=== PATIENT | male | born 1960 | race Caucasian/White ===

== ENCOUNTER 2019-08-01 16:48 | Inpatient (IN) ==
[2019-08-01 23:04] LABS: Basophils % 0.2 %; Eosinophils # 0.1 K/mcL (0.0-0.6); Eosinophils % 0.4 %; Hemoglobin 15.6 g/dL (12.9-16.9); Immature Granulocytes % 0.3 % (0-4); Lymphocytes # 0.7 K/mcL (0.6-4.6); Lymphocytes % 5.2 %; Mean Corpuscular HGB Conc 33.2 g/dL (31.6-35.5); Mean Corpuscular Hemoglobin 29.7 pg (28.0-33.3); Mean Corpuscular Volume 89.4 fL (83.0-100.0); Mean Platelet Volume 10.7 fL (9.4-12.4); Monocytes # 1.3 K/mcL (0.0-1.3); Monocytes % 9.9 %; Neutrophils # 10.6 K/mcL (1.6-8.9); Platelet Count 188 K/mcL (140-400); Red Blood Count 5.26 M/mcL (4.19-5.50); White Blood Count 12.6 K/mcL (4.3-11.1)
[2019-08-01 23:12] LABS: Prothrombin Time 11.6 Seconds (9.4-12.1)
[2019-08-01 23:14] LABS: Estimated Average Glucose 120 mg/dl
[2019-08-01 23:15] LABS: Activated Partial Thrombo Time 31.8 Seconds (26.0-36.0)
[2019-08-01 23:25] LABS: Albumin 4.3 g/dL (3.5-5.7); Albumin/Globulin Ratio 2.2 (1.1-2.2); Bilirubin,Direct 0.2 mg/dL (0.0-0.2); Bilirubin,Indirect 0.4 mg/dL (0.0-1.2); Bilirubin,Total 0.6 mg/dL (0.3-1.0); Total Protein 6.3 g/dL (6.4-8.9)
[2019-08-01 23:26] LABS: Alanine Aminotransferase 16 Units/L (7-52); Albumin 4.3 g/dL (3.5-5.7); Albumin/Globulin Ratio 2.2 (1.1-2.2); Alkaline Phosphatase 95 Units/L (34-104); Aspartate Amino Transferase 21 Units/L (13-39); BUN/Creatinine Ratio 18 (6-26); Bilirubin,Total 0.7 mg/dL (0.3-1.0); Blood Urea Nitrogen 24 mg/dL (6-20); Calcium 9.1 mg/dL (8.6-10.3); Carbon Dioxide 26 mEq/L (23-29); Chloride 105 mEq/L (98-107); Glucose 132 mg/dL (70-105); Osmolality,Calculated 296 (280-300); Potassium 4.7 mEq/L (3.5-5.1); Sodium 140 mEq/L (136-145); Total Protein 6.3 g/dL (6.4-8.9); eGFR For African Americans > 60 (> 60); eGFR For Non-African Americans 56 (> 60)
--- NOTE | 2019-08-01 23:45 | Orthopedic Consult Note ---
Date of Encounter: 08/01/19 Time of Encounter: 23:40 History of Present Illness Chief complaint: Left leg pain HPI: Mr. Ratliff is a 59 year old male who sustained an injury to his left leg when he was sawing a stump from a tree the images pushed over with a bulldozer. Ap parently the blade pinched and the log rolled and not his left leg. He had immediate pain and deformity to the left lower extremity. He was ultimately brought to the emergency room at [facility] where x-rays taken revealed evidence of a tibia and fibular fracture. He was transferred to [facility] for definitive orthopedic management. I reviewed the patient's completed medical chart as well as records from [place]. Pertinent orthopedic examination reveals a pleasant 59-year-old gentleman in mild distress secondary to left leg pain. Left lower extremity is in a Hare splint from the knee distal. Distal neurosensory exam is intact in the foot. Strong pulses are present. X-rays of the left tibia and fibula are reviewed. These reveal a segmental type fracture of the midshaft of the tibia with an associated comminuted fracture of the midshaft of the fibula. Impression: Left tibia and fibular fractures, segmental tibia and midshaft fibula Recommendation: Discussed with the patient and with his recommend we proceed with surgical fixation. Would recommend stabilization of the fibular fracture to obtain appropriate length and then this would be followed by intramedullary nailing of the tibia with possible open reduction. Discussed the surgical procedure as well as the potential risks and complications including but not limited to bleeding, infection, blood clots, nerve injury, stiffness, malunion and nonunion as well as leg length or rotational deformities. Patient understands and agrees to proceed with surgery as outlined. Signed informed consent for the surgery. Anticipate proceeding with surgery tomorrow when op erating time is available. Thank you for allowing me to see and care for Mr. Ratliff. Sincerely, Jose Abbott,DO Past Med Surg Social Fam HX - Past Medical History Medical history: hypertension Psychiatric history: depression - Past Surgical History Additional surgical history: OPEN HEART SURGERY AT AGE 40 - Social History Smoking Status: Current every day smoker Packs per day: 1 Smokeless Tobacco Status: No Alcohol use: occasionally Drug use: none Medications and Allergies Aspirin [Lo-Dose Aspirin EC] 81 mg PO DAILY 08/01/19 [History] Atenolol [Tenormin] 25 mg PO DAILY 08/01/19 [History] Fish Oil 1,500 mg PO DAILY 08/01/19 [History] Sertraline [Zoloft] 50 mg PO DAILY 08/01/19 [History] Simvastatin [Zocor] 40 mg PO DAILY 08/01/19 [History] Allergy/AdvReac Type Severity Reaction Status Date / Time No Known Allergies Allergy Verified 08/01/19 16:01 All Systems Reviewed: The remainder of the systems were reviewed and are negative Physical Exam - Constitutional Vitals: Temp Pulse Resp BP Pulse Ox 99.5 F 53 18 110/66 94 08/01/19 21:49 08/01/19 21:49 08/01/19 21:49 08/01/19 21:49 08/01/19 21:49 Results - Labs Result Diagrams: 08/01/19 22:48 08/01/19 22:48 Labs: Abnormal lab results WBC 12.6 K/mcL (4.3-11.1) H 08/01/19 22:48 Neutrophils # 10.6 K/mcL (1.6-8.9) H 08/01/19 22:48 BUN 24 mg/dL (6-20) H 08/01/19 22:48 Creatinine 1.32 mg/dL (0.70-1.30) H 08/01/19 22:48 Est GFR (Non-Af Amer) 56 (> 60) L 08/01/19 22:48 Glucose 132 mg/dL (70-105) H 08/01/19 22:48 Hemoglobin A1c 5.8 % (-5.6) H 08/01/19 22:48 Serum Total Protein 6.3 g/dL (6.4-8.9) L 08/01/19 22:48 Serum Total Protein 6.3 g/dL (6.4-8.9) L 08/01/19 22:48 Globulin 2.0 g/dL (2.4-3.5) L 08/01/19 22:48 Globulin 2.0 g/dL (2.4-3.5) L 08/01/19 22:48 HDL Cholesterol 38 mg/dL (40-59) L 08/01/19 22:48 H & H 08/01/19 Range/Units 22:48 Hgb 15.6 (12.9-16.9) g/dL Hct 47.0 (37.5-50.1) % All other labs normal.
[2019-08-01] MEDS ORDERED: *HR* Promethazine 25 MG/ML VIAL IVP PRN (23:56)
[2019-08-01] MEDS ORDERED: Acetaminophen 325 MG TABLET PO PRN (23:56)
[2019-08-01] MEDS ORDERED: *HR* OxyCODONE Immed Rel 5 MG TABLET PO PRN (23:56)
[2019-08-01] MEDS ORDERED: Naloxone 0.4 MG/ML INJ IVP PRN (23:56)
[2019-08-02] MEDS: Nicotine 21 MG PATCH.TD24 TD SCH (00:31)
[2019-08-02] MEDS: 0.9 % Sodium Chloride 1,000 ML IVC SCH ×2 (00:31→15:11)
[2019-08-02] MEDS: *HR* HYDROcodone/Acet 5/325 mg TABLET PO PRN ×3 (00:32→15:10)
--- NOTE | 2019-08-02 00:46 | Internal Med History&Physical ---
Date of Encounter: 08/01/19 Time of Encounter: 23:00 Internal Medicine - H&P: HPI Chief complaint: Left leg pain Admitted From: Intrahospital Transfer Plans for Post Hospital Care: Home History of present illness: Mr. Ratliff is a 59 year old male w/PMH of 6-way cardiac bypass surgery at the age of 40, HTN, HLD, and depression presents from [facility] ED w/CC of left leg pain resulting from an accident sustained today. Patient was cutting a tree down when the tree rolled and hit him in the left leg. Patient reports leg was pointed one direction and his left foot was pointing in another direction. EMS splinted leg. 2V XR of the left leg shows comminuted tibial and fibular mid diaphyseal fractures with punctate foreign body noted near the tibia just superior to the fracture site. Patient reports 3/10 pain in left leg. Patient denies recent illness, fever, chills, nausea, vomiting, headache, changes in vision, unusual bleeding, chest pain, shortness of breath, home oxygen use, abdominal pain, diarrhea, constipation, numbness, tingling, dizziness, lightheadedness, pre-syncope, or syncope. Past Med Surg Social Fam HX - Past Medical History Source: patient, old records reviewed, obtained from family Medical history: hyperlipidemia, hypertension Psychiatric history: depression - Past Surgical History Additional surgical history: OPEN HEART SURGERY AT AGE 40 - [address] WAY BYPASS - Social History Smoking Status: Current every day smoker Packs per day: 1 PPD Smokeless Tobacco Status: No Alcohol use: occasionally Drug use: none Occupational status: employed Current living situation: Home, With Family Activity Level: Independent ambulation, Very active Recent Out of Country Travel Within the Last 8 Weeks: No Exposure or Possible Exposure to Illness During Travel: No - Family History Father Race: Family Member Ethnicity: Non- Living Status: Age at : 51 Cause of : Cancer Hx Family Cancer: Yes (Metastatic cancer) Mother Race: Family Member Ethnicity: Non- Living Status: Age at : 73 Cause of : NE Hx Family Cardiac Disorders: Yes (NE, CAD) Brother Race: Family Member Ethnicity: Non- Living Status: Age at : 55 Cause of : Cancer (Type unknown) Hx Family Cancer: Yes Sister Race: Family Member Ethnicity: Non- Living Status: Still Living Hx Family Medical Disorders: No Internal Medicine - H&P: Meds Aspirin [Lo-Dose Aspirin EC] 81 mg PO DAILY 08/01/19 [History] Atenolol [Tenormin] 25 mg PO DAILY 08/01/19 [History] Fish Oil 1,500 mg PO DAILY 08/01/19 [History] Sertraline [Zoloft] 50 mg PO DAILY 08/01/19 [History] Simvastatin [Zocor] 40 mg PO DAILY 08/01/19 [History] Allergy/AdvReac Type Severity Reaction Status Date / Time No Known Allergies Allergy Verified 08/01/19 16:01 All Systems PM: A 10-system review of systems was performed and is negative for pertinent fi ndings except as documented above in the HPI. - Constitutional Constitutional: as per HPI, no chills, no fever(s), no night sweats - EENT Eyes: as per HPI, no change in vision, no discharge, no pain, no photophobia Ears: as per HPI, no ear discharge, no ear pain, no tinnitus Nose, mouth and throat: as per HPI, no dysphagia, no nasal discharge, no neck pain, no sore throat - Breasts Breasts: as per HPI - Cardiovascular Cardiovascular ROS IM: as per HPI, no chest pain, no diaphoresis, no dyspnea, no lightheadedness, no palpitations, no syncope - Respiratory Respiratory: as per HPI, no cough, no dyspnea, no wheezing, no excessive phlegm production - Gastrointestinal Gastrointestinal: as per HPI, no abdominal pain, no diarrhea, no hematemesis, no hematochezia, no melena, no nausea, no vomiting - Genitourinary Genitourinary ROS male: as per HPI - Musculoskeletal Musculoskeletal ROS IM: as per HPI, other (Left leg pain), no numbness, no tingling - Integumentary Integumentary IM: as per HPI, no rash, no unusual bruising - Neurological Neurological ROS: as per HPI, no confusion, no convulsions, no focal weakness, no numbness, no tingling, no tremor(s) - Psychiatric Psychiatric: as per HPI - Endocrine Endocrine IM: as per HPI - Hematologic/Lymphatic Hematologic/Lymphatic: as per HPI, no easy bruising - Allergic/Immunologic Allergic/Immunologic: as per HPI - Constitutional Vitals: Temp Pulse Resp BP Pulse Ox 99.5 F 53 18 110/66 94 08/01/19 21:49 08/01/19 21:49 08/01/19 21:49 08/01/19 21:49 08/01/19 21:49 General appearance: Present: cooperative, mild distress, A&O X 3, pleasant, answers questions appropriately Exam: Patient examined at bedside. Patient reporting 3/10 pain in LLE. Patient denies any other sx or complaints on examination. VS: 99.5F temp, HR 53, RR 18, BP 110/66, SPO2 94% on room air. - Head Head exam: Present: atraumatic, normocephalic - Eye Eye exam: Present: PERRL, conjuntiva pink, sclera anicteric Pupils: Present: PERRL - ENT ENT exam: Present: normal exam - Neck Neck exam general surgery: Present: normal inspection, supple, trachea midline. Absent: lymphadenopathy - Respiratory Respiratory exam: Present: CTAB. Absent: accessory muscle use, rales, rhonchi, wheezes - Cardiovascular Cardiovascular exam: Present: RRR, +S1, +S2. Absent: diastolic murmur, gallop, rubs, systolic murmur - GI/Abdominal GI/Abdominal exam: Present: normal bowel sounds, soft, no peritoneal signs. Absent: distended, tenderness - Rectal Rectal exam: Present: deferred - Additional comments: exam deferred. - Extremities Exam Extremities exam: Present: pedal edema (LLE), tenderness (LLE), warm, radial pulses palpable and symmetrical. Absent: calf tenderness, cyanotic - Back Exam Back exam: Present: normal inspection - Neurological Exam Neurological exam: Present: alert, CN II-XII intact, oriented X3, no focal deficits. Absent: pronater drift, facial droop, speech deficit - Psychiatric Psychiatric exam: Present: normal affect, normal mood - Skin Skin exam: Present: dry, intact Internal Med - H&P Results - Labs CBC & Chem 7: 08/02/19 02:19 08/02/19 02:19 Labs: Short CBC 08/01/19 Range/Units 22:48 WBC 12.6 H (4.3-11.1) K/mcL Hgb 15.6 (12.9-16.9) g/dL Hct 47.0 (37.5-50.1) % Plt Count 188 (140-400) K/mcL Neutrophils # 10.6 H (1.6-8.9) K/mcL BMP 08/01/19 22:48 Sodium 140 Potassium 4.7 Chloride 105 Carbon Dioxide 26 BUN 24 H Creatinine 1.32 H Glucose 132 H Calcium 9.1 Liver Function 08/01/19 08/01/19 Range/Units 22:48 22:48 Total Bilirubin 0.7 0.6 (0.3-1.0) mg/dL Direct Bilirubin 0.2 (0.0-0.2) mg/dL AST 21 21 (13-39) Units/L ALT 16 17 (7-52) Units/L Alkaline Phosphatase 95 95 (34-104) Units/L Albumin 4.3 4.3 (3.5-5.7) g/dL - Impressions ITS Impressions Chest X-Ray 08/01/19 22:19 IMPRESSION: No acute process. D/ / Jeffy Ortiz / Jeffy Ortiz Interpreting Provider: Jeffy Ortiz - Diagnostic Studies Other Images Additional comments: Impressions EXAMINATION: TWO XRAY VIEWS OF THE LEFT TIBIA/FIBULA 08/01/2019 4:15 pm COMPARISON: None. HISTORY: ORDERING SYSTEM PROVIDED HISTORY: leg injury Acute. Initial exam. FINDINGS: There are fractures noted through the mid tibial and fibular diaphyses with apex medial angulation. There is a retained radiopaque foreign body near the tibia. No other fractures are identified. XR/XR tibia fibula LT IMPRESSION: 1. Comminuted tibial and fibular mid diaphyseal fractures. 2. Punctate foreign body noted near the tibia, just superior to the fracture site. D/ / 08/01/2019 16:23:24 [facility]hsan Sierra [facility] Provider: Ahsan Sierra MD Chest x-ray Additional comments: Impressions Chest X-Ray 08/01/19 22:19 IMPRESSION: No acute process. D/ / Jeffy Ortiz / Jeffy Ortiz Interpreting Provider: Jeffy Ortiz - Assessment and Plan (1) Tibia/fibula fracture, shaft Current Visit: Yes Status: Acute Assessment and plan: Acute segmental and comminuted tibial and fibular mid diaphyseal fractures resulting from an accident sustained today. Patient was cutting a tree down when the tree rolled and hit him in the left leg. Patient reports leg was pointed one direction and his left foot was pointing in another direction. EMS splinted leg. 2V XR of the left leg shows comminuted tibial and fibular mid diaphyseal fractures with punctate foreign body noted near the tibia just superior to the fracture site. Patient reports 3/10 pain in left leg. Patient denies recent cardiac w/u. Hx of 6-way bypass at the age of 40. EKG shows sinus bradycardia with ST deviation and moderate T-wave abnormality. Consider lateral ischemia. 1 view portable CXR shows no acute process. Echocardiogram stat in the a.m. for surgery clearance. NPO at midnight for surgery w/Dr. Abbott tomorrow. Stair-step pain medications for pain mgmt. Patient is high risk for further morbidity based on current segmental and comminuted tibial and fibular mid diaphyseal fractures, hx of 6-way bypass at the age of 40, familial hx of CAD and NE (mother), current tobacco abuse; and risk factors of HTN and HLD. Inpatient. Qualifiers: Encounter type: initial encounter Fracture type: closed Laterality: left Qualified Code(s): S82.202A - Unspecified fracture of shaft of left tibia, initial encounter for closed fracture; S82.402A - Unspecified fracture of shaft of left fibula, initial encounter for closed fracture (2) Leukocytosis Current Visit: Yes Status: Acute Assessment and plan: Acue leukocytosis w/WBC of 12.6 on admission. Likely reactive to segmental tibial and fibular mid distal physeal fractures. No identifiable infection source. Sessile and IVPB ordered by Dr. Abbott for pre-surgery prophylaxis. Monitor pt. and f/u labs. Will order blood cultures and U/A if warranted. Qualifiers: Leukocytosis type: other Qualified Code(s): D72.828 - Other elevated white blood cell count (3) TODD (acute kidney injury) Current Visit: Yes Status: Acute Assessment and plan: TODD w/GFR of 56 and creatinine 1.32. Patient denies any history of CKD. 0.9 IV fluids ordered at 75 mls/hr. Will monitor pt. and f/u labs. Strict I&O. Will avoid nephrotoxins. (4) HTN (hypertension) Current Visit: Yes Status: Chronic Assessment and plan: Hx of chronic HTN. Monitor pt. and VS. Continue patient's atenolol. Qualifiers: Hypertension type: essential hypertension Qualified Code(s): I10 - Essential (primary) hypertension (5) HLD (hyperlipidemia) Current Visit: Yes Status: Chronic Assessment and plan: Hx of chronic HLD. Lipid panel shows triglycerides 81, cholesterol 153, LDL cholesterol 99, VLDL cholesterol 16, HDL cholesterol 38, cholesterol/HDL ratio 4.0. Continue patient's simvastatin. Qualifiers: Hyperlipidemia type: pure hypercholesterolemia Qualified Code(s): E78.00 - Pure hypercholesterolemia, unspecified; E78.0 - Pure hypercholesterolemia (6) Depression Current Visit: Yes Status: Chronic Assessment and plan: Hx of chronic depression. Continue pts. Zoloft. Qualifiers: Depression Type: other depression Qualified Code(s): F32.89 - Other specified depressive episodes (7) Tobacco abuse Current Visit: Yes Status: Chronic Assessment and plan: Hx of chronic tobacco abuse. Pt. reports smoking 1 PPD. 21 mg nicotine patch ordered. (8) DVT prophylaxis Current Visit: Yes Status: Acute Assessment and plan: Anti-embolic stockings and foot pumps for DVT prophylaxis. - Time Spent With Patient Total time spent is greater than 50% in coordination of care (as documented) at patient's floor/unit and/or counseling patient: Greater than 35 minutes
[2019-08-02] MEDS: *HR* HYDROmorphone (PF) 1 MG/ML SYRINGE IVP PRN ×4 (01:24→21:20)
[2019-08-02] MEDS ORDERED: tiZANidine 4 MG TABLET PO ONE (01:25)
[2019-08-02 02:40] LABS: Hematocrit 44.5 % (37.5-50.1); Hemoglobin 14.8 g/dL (12.9-16.9); Mean Corpuscular HGB Conc 33.3 g/dL (31.6-35.5); Mean Corpuscular Volume 90.1 fL (83.0-100.0); Mean Platelet Volume 10.8 fL (9.4-12.4); Platelet Count 168 K/mcL (140-400); Red Blood Count 4.94 M/mcL (4.19-5.50); White Blood Count 9.7 K/mcL (4.3-11.1)
[2019-08-02 02:45] LABS: INR 1.1; Prothrombin Time 12.4 Seconds (9.4-12.1)
[2019-08-02 02:57] LABS: BUN/Creatinine Ratio 20 (6-26); Blood Urea Nitrogen 23 mg/dL (6-20); Calcium 8.8 mg/dL (8.6-10.3); Carbon Dioxide 25 mEq/L (23-29); Chloride 105 mEq/L (98-107); Glucose 127 mg/dL (70-105); Magnesium 1.9 mg/dL (1.6-2.6); Osmolality,Calculated 291 (280-300); Potassium 4.1 mEq/L (3.5-5.1); Sodium 138 mEq/L (136-145); eGFR For African Americans > 60 (> 60); eGFR For Non-African Americans > 60 (> 60)
[2019-08-02] MEDS ORDERED: Aspirin Enteric Coated 81 MG Tablet PO SCH (09:00)
--- NOTE | 2019-08-02 10:01 | Event Note ---
<Bruce Nunez - Last Filed: 08/02/19 17:11> Date of Encounter: 08/02/19 Time of Encounter: 07:58 Subjective: AOx3 laying in bed in no acute distress. Patient reports significant Left lower extremity pain. Reports not having a bowel movement since injury but is still able to pass flatus. Denies any fever, chills, chest pain, SOB, cough, diarrhea, dysuria, history of blood clots or blood in the urine. Patient has a PmHx of 6- way cardiac bypass surgery at the age of 40, HTN, HLD, and depression. PE: -Gen: AOX3 in mild distress secondary to pain -Eyes: LEELA, EOMI, with no conjunctivitis -Throat: Moist mucous membranes with no ulceration or pharyngeal erythema -CV: RRR with no murmur -Resp: CTA in all lung kaur with no rhales or rhonchi -GI: Soft, non-tender with no organomegally or masses palpated -Neuro:CN II-XII intact with no focal deficits. UE strength 4/5. Right lower extremity strength 4/5. Unable to asses R LE due to unstable fracture. -Ext:L leg in splint. Pulses 2/4 in LE ankit. Sensation intact in Ankit LE. No edema present ankit. -Derm: No rashes visualized on extremity. L LE has no cyanosis, or pallor. Assessment/Plan: Tibia/fibula fracture: -Acute segmental and comminuted tibial and fibular mid diaphyseal fractures resulting from an accident sustained 08/01. Splinted by EMS. X ray of the left leg shows comminuted tibial and fibular mid diaphyseal fractures with punctuate foreign body noted near the tibia just superior to the fracture site. -Hgb 14.8 today -Cardiac risk index score 12/05 with 6% 30 day risk , [place], or cardiac arrest plan: -NPO for surgery with Dr. Abbott - Manage pain with 10 mg oxycodone PO Q6, Percocet 1 tab Q6, Diluadid 1mg IVP - Cont neurovascular checks Abnormal EKG - EKG shows sinus bradycardia with ST deviation and moderate T-wave abnormality. -Patient had 6-way cardiac bypass surgery at the age of 40. - ALso has PmhX Hypertension, Hypercholesteremia, History of Smoking 1 PPD, Family History of CAD -Patient asymptomatic denying chest pain, light headedness, SOB, LE edema. -HR has been 53-66 throughout hospital stay on atenolol -Eho report 08/01 showed LVEF 55-60%, no wall motion abnormalities with right ventricle appearing grossly normal, LA normal size, RA normal size, trace mitral regurgitation. No evidence of Pulm HTN -Cardiac risk index score 12/05 with 6% 30 day risk , [place], or cardiac arrest plan: -Cont to monitor vitals Leukocytosis -Patient presented with WBC count of 12.6 on 08/01 which is down to 9.7 today - Likely reactive / fracture, however unable to rule out infectious etiologies -Chest x ray from 08/01 shows no acute process plan: - cont to monitor - Continue cefazoline TODD -GFR of 56 and creatinine 1.32 08/01. -Today eGFR >60 and creatinine 1.14 -0.9 IV fluids ordered at 75 mls/hr plan: -Will continue to monitor kidney function and urine output -Will avoid nephrotoxins and renally dose medications HTN - Hx of chronic HTN. plan: -Monitor pt. vital signs -Continue patient's atenolol 25 mg PO HLD - Lipid panel 08/01 triglycerides 81, cholesterol 153, LDL cholesterol 99, VLDL cholesterol 16, HDL cholesterol 38 plan: -cont simvastatin <Nikita Almeida - Last Filed: 08/02/19 22:02> Date of Encounter: 08/02/19 I saw evaluated and examined this patient and reviewed objective data including labs and my medical decision-making was reviewed with the Resident Physician and medical student. I agree with the documented findings, disposition and treatment plan as described except to any changes set forth below. We independently had [id number] contact with the patient. 59 year old male presented after injury with part of tree causing injury to leg. Imaging shows tib/fib fracture. Currently in no acute distress when leg is not being moved. Sensation of both extremities intact and tibial pulses equal bilaterally with no extremity edema. VS: reviewed. Labs: reviewed, creatinine slightly elevated on admission and now within normal limits. Complains of urinary retention and bladder scan has 600 ml seen in bladder. Continue pain management for surgery planned for today. Monitor renal function, urine output.
--- NOTE | 2019-08-02 21:27 | Anesthesia Evaluation PreOp ---
Date of Encounter: 08/02/19 Time of Encounter: 23:26 - Past History Planned Operation: Left Tibia IM Nailing, ORIF Left Fibula Cardiac History: HTN, Hyperlipidemia, Cardiac Surgery (CABG x 4) Pulmonary History: Smoker, Snore PLANT PROTECTION GUARD History: Denies Any Significant HX Other Medical History: Denies Any Significant HX Anesthesia History: No Prior Anesthetic Complications, Past Anesthesia Alcohol Use: occasionally Drug use: none Medications and Allergies Aspirin [Lo-Dose Aspirin EC] 81 mg PO DAILY 08/01/19 [History] Atenolol [Tenormin] 25 mg PO DAILY 08/01/19 [History] Haughton-3 Fatty Acids [Fish Oil] 300 mg PO DAILY 08/01/19 [History] Sertraline [Zoloft] 50 mg PO DAILY 08/01/19 [History] Simvastatin [Zocor] 40 mg PO DAILY 08/01/19 [History] Nitroglycerin [Nitrostat] 0.4 mg PO Q5MIN PRN MDD 3 doses 08/02/19 [History] Allergy/AdvReac Type Severity Reaction Status Date / Time No Known Allergies Allergy Verified 08/02/19 14:22 - Meds/Allergy Pre-op Review Medications Reviewed: Yes Allergies Reviewed: Yes Beta Blockers on Current Med List: Yes If Beta Blockers taken, Date/Time (Last Dose taken): 08/02/2019 at 0835 Anesthesia Results - Labs 08/02/19 02:19 08/02/19 02:19 - Imaging EKG: report reviewed (sinus bradycardia, ST deviation and moderate T wave abnormality, consider lateral ischemia) Additional studies: 08/02/2019 Echo Impressions: LVEF 55-60%. Normal LV chamber size, wall thickness and function. Normal left ventricular diastolic function. The right ventricle was not well visualized but appeared grossly normal in size and function Mild tricuspid regurgitation. No evidence of pulmonary hypertension. Anesthesia Exam Vital Signs/O2 Sat, Most Current Temp Pulse Resp BP Pulse Ox 98.9 F 65 16 153/82 94 08/02/19 19:07 08/02/19 19:07 08/02/19 19:07 08/02/19 19:07 08/02/19 19:07 Height: 5'9''/1.75m Weight: 190 lbs/86 kg NPO (# of Hours): 8 Pain Scale: 6 Pain Scale Used: Numeric (1 - 10) - HEENT Pupil (Motor): EOMI Mallampati: II Teeth: Edentulous Oral Opening: Greater than 3 - PLANT PROTECTION GUARD LOC: Oriented PLANT PROTE[employer] GUARD Motor: Normal RUE, Normal LUE, Normal RLE, Normal LLE, Normal Face PLANT PROTECTION GUARD Sensory: Normal: RUE, LUE, RLE, LLE, Face - Cardiac Rhythm: Regular Murmur: None - Pulmonary Breath Sounds: bilateral Clear Respiratory Effort: Symmetrical Anesthesia Assess/Plan ASA Score: 3 Level of consciousness: Cooperative, Oriented, Tranquil Anesthetic Plan: General Monitoring Plan: Standard Monitors Recovery Plan: PACU
[2019-08-02] MEDS ORDERED: Albuterol 2.5 MG/3 ML NEBULIZER ONE (22:54)
[2019-08-02] MEDS ORDERED: Albuterol 2.5 MG/3 ML NEBULIZER IH ONE (22:54)
[2019-08-02] MEDS ORDERED: Lidocaine HCL 4 ML Topical Solution (Laryng-O-Jet Kit Sterile Pak) TP ONE (23:09)
[2019-08-02] MEDS ORDERED: *HR* FentaNYL (PF) 100 MCG/2 ML VIAL ONE (23:13)
[2019-08-02] MEDS ORDERED: *HR* Propofol 200 MG/20 ML VIAL IVP ONE (23:13)
[2019-08-02] MEDS ORDERED: *HR* Midazolam HCl 2 MG/2 ML VIAL ONE (23:13)
[2019-08-02] MEDS ORDERED: *HR* Rocuronium Bromide 50 MG/5 ML VIAL ONE (23:14)
[2019-08-02] MEDS ORDERED: Lidocaine -MPF 2% 2 ML VIAL ONE (23:15)
[2019-08-02] MEDS ORDERED: *HR* HYDROmorphone (PF) 1 MG/ML SYRINGE IVP PRN (23:28)
[2019-08-03] MEDS ORDERED: Ondansetron 4 MG/2 ML VIAL ONE (01:02)
[2019-08-03] MEDS: Nicotine 21 MG PATCH.TD24 TD SCH ×2 (01:02→05:55)
[2019-08-03] MEDS ORDERED: Dexamethasone 4 MG/ML VIAL ONE (01:02)
--- NOTE | 2019-08-03 02:17 | Operative Note ---
Date of procedure: 08/03/19 Pre-op diagnosis: 1. Displaced segmental fracture left tibia (mid diaphyseal)2. Left fibu Post-op diagnosis: same Procedure: 1. Open reduction with intramedullary nailing left tibia fracture 2. Fluoroscopic guidance for open reduction with intramedullary nailing left tibia Implants: Synthes 9 mm x 345 mm titanium tibial nail with 24.0 mm locking screws, 1 proximal and 1 distal Complications: None Anesthesia: GETA Surgeon: Jose Abbott Was there an communications assistant present: No Estimated blood loss (cc): 25 Tourniquet Time (Minutes): 90 Specimen: None Condition: stable Disposition: PACU Procedure in Detail: Gross findings: Preoperative x-rays revealed a complex segmental fracture of the midshaft of the left tibia with irregular edges but relatively transverse in nature. There is associated with a comminuted midshaft fracture of the fibula. Intraoperative findings were as anticipated. Multiple attempts were made to reduce and passed the wire across the segmental fracture site without success. A limited open reduction was performed with stabilization of the fractures after reduction followed by intramedullary nailing of the tibia. Multiplanar fluoroscopy was used to guide the reduction as well as placement of the tibial nail. Complicating features were encountered. Procedure: Patient was taken the operating room and while the hospital bed was administered general anesthesia. Once adequate level of anesthesia. Obtained the patient was transferred to the operating table. Left lower extremity was now prepped and draped in normal standard fashion with a tourniquet placed high about the upper thigh. Leg was now exsanguinated utilizing Esmarch and tourniquet was inflated. Incision was made from the tibial tubercle up to the inferior pole of the p atella. Dissection was carried through subtendinous tissues down to the lateral side of the patella tendon which was opened. The entrance into the extra- articular space was performed with removal of portion of the infrapatellar fat pad. Curved awl was used to enter into the tibial canal. A ball-tipped guidewire was then passed down the canal. It was passed to the level of the fracture site. At this time multiple attempts were made to adequately reduce the fracture and passed a guidewire. These were unsuccessful asked after multiple attempts. Decision was made to proceed with a limited open reduction. Incision was made along the anteromedial aspect of the tibia just over the fracture site. Dissection was carried through subcutaneous tissue down the level of the fracture site proper. Marked amount of fracture hematoma was encountered and evacuated. With some difficulty the fracture was able to ultimately be reduced and then held in a reduced position with bone-holding clamps. This was performed on both ends of the segmental fracture. Once this was reduced the guidewire was passed distally. The tibial canal was then reamed with flexible reamers up to and including a size 10 mm. The selected nail was then placed on the insertion jig passed over the guidewire and impacted down the tibia until it sat distally and seated proximally. Fracture site was well maintained. At this time utilizing the insertion jig a single medial oblique locking screw was placed. This is now followed by placing a single mediolateral distal locking screw. This was performed with freehand technique. After this was completed with biplanar fluoroscopy was taken verifying excellent reduction of the fracture and position of the implants. Wounds are now irrigated and closed. The wounds were closed with #1 strata fix suture in the deep tissue followed by skin approximation with stainless steel clips. Sterile dressings consisting of bacitracin Adaptic 4 x 4's ABDs cast padding Roosevelt wrap was now applied and secured. Tourniquet was now deflated. Patient was now awakened from anesthesia, exiting operating room and transferred to the postanesthesia care unit in stable and satisfactory condition. All sponge needle and instrument counts are correct. No specimens are sent for pathology.
[2019-08-03] MEDS ORDERED: Albuterol 2.5 MG/3 ML NEBULIZER IH ONE (02:33)
--- NOTE | 2019-08-03 02:45 | Anesthesia Evaluation Post Op ---
Date of Encounter: 08/03/19 Time of Encounter: 02:44 - Vital Signs Vital Signs: Vital Signs/O2 Sat, Most Current Temp Pulse Resp BP Pulse Ox 100.3 F H 66 14 122/68 99 08/03/19 02:35 08/03/19 02:35 08/03/19 02:35 08/03/19 02:35 08/03/19 02:35 - Lungs Lungs: Clear Ascult./Percussion - Airway Airway: Non-obstructed - Cardiovascular Regular Rate - Mental Status Mental Status: Alert & Oriented, Answers Appropriately - Pain Pain Scale: 4 Pain Scale used: Numeric (1 - 10) - Nausea Vomiting Nausea Vomiting: Not Present - Hydration Hydration: NPO, Fish catheter - Discharge PostOp Status: Transfer Patient to floor
[2019-08-03] MEDS ORDERED: Nitroglycerin 0.4 MG TAB.SUBL SL PRN (02:56)
[2019-08-03] MEDS ORDERED: Acetaminophen 325 MG TABLET PO PRN (02:56)
[2019-08-03] MEDS ORDERED: Naloxone 0.4 MG/ML INJ IVP PRN (02:56)
[2019-08-03] MEDS ORDERED: *HR* Promethazine 25 MG/ML VIAL IVP PRN (02:56)
[2019-08-03] MEDS ORDERED: *HR* HYDROmorphone (PF) 1 MG/ML SYRINGE IVP PRN (02:56)
[2019-08-03] MEDS ORDERED: 0.9 % Sodium Chloride 1,000 ML IVC SCH (02:56)
[2019-08-03 06:11] LABS: Hematocrit 42.9 % (37.5-50.1); Hemoglobin 14.5 g/dL (12.9-16.9); Mean Corpuscular HGB Conc 33.8 g/dL (31.6-35.5); Mean Corpuscular Hemoglobin 30.5 pg (28.0-33.3); Mean Corpuscular Volume 90.1 fL (83.0-100.0); Platelet Count 145 K/mcL (140-400); Red Blood Count 4.76 M/mcL (4.19-5.50); Red Cell Distribution Width 12.6 % (11.5-14.5); White Blood Count 11.2 K/mcL (4.3-11.1)
[2019-08-03] MEDS: *HR* HYDROcodone/Acet 5/325 mg TABLET PO PRN ×3 (06:19→22:27)
[2019-08-03 06:31] LABS: BUN/Creatinine Ratio 15 (6-26); Blood Urea Nitrogen 17 mg/dL (6-20); Calcium 8.5 mg/dL (8.6-10.3); Carbon Dioxide 25 mEq/L (23-29); Chloride 102 mEq/L (98-107); Glucose 152 mg/dL (70-105); Osmolality,Calculated 289 (280-300); Potassium 4.1 mEq/L (3.5-5.1); Sodium 137 mEq/L (136-145); eGFR For African Americans > 60 (> 60); eGFR For Non-African Americans > 60 (> 60)
--- NOTE | 2019-08-03 08:25 | Internal Med Progress Note ---
<NedalelaWei - Last Filed: 08/03/19 12:49> Hospitalist Progress Note - Encounter Date of Encounter: 08/03/19 Time of Encounter: 09:55 - Subjective Interval History: Patient underwent surgery overnight. Doing well at this time. Pain is well controlled. Did have fever overnight with temperature of 100.3. No other complaints at this time. Work with physical therapy. Tolerating oral diet. Passing flatus. - Exam Vitals: Temp Pulse Resp BP Pulse Ox 98.2 F 71 18 150/78 94 08/03/19 11:40 08/03/19 11:40 08/03/19 11:40 08/03/19 11:40 08/03/19 11:40 Exam: General: Patient is alert, no acute distress, oriented x 3 Respiratory: Good respiratory effort. Normal breath sounds. No wheezing or crackles. Cardiovascular: Regular rate and rhythm. s1 and s2 normal No clicks, rubs, gallops, or murmurs. No pedal edema Abdomen: Abdomen is soft, nontender. Bowel sounds are present Musculoskeletal: Left lower extremity bandaged. Skin: warm, dry, intact. Neuro: Alert oriented x 3 normal cranial nerves, no focal deficits - Assessment and Plan (1) Tibia/fibula fracture, shaft Current Visit: Yes Status: Acute (2) Leukocytosis Current Visit: Yes Status: Acute (3) TODD (acute kidney injury) Current Visit: Yes Status: Acute (4) HTN (hypertension) Current Visit: Yes Status: Chronic (5) HLD (hyperlipidemia) Current Visit: Yes Status: Chronic (6) Depression Current Visit: Yes Status: Chronic (7) DVT prophylaxis Current Visit: Yes Status: Acute (8) Tobacco abuse Current Visit: Yes Status: Chronic - Time Spent with Patient Total time spent is greater than 50% in coordination of care (as documented) at patient's floor/unit and/or counseling patient: Internal Medicine: Result - Labs CBC & Chem 7: 08/03/19 05:18 08/03/19 05:18 Labs: Short CBC 08/03/19 Range/Units 05:18 WBC 11.2 H (4.3-11.1) K/mcL Hgb 14.5 (12.9-16.9) g/dL Hct 42.9 (37.5-50.1) % Plt Count 145 (140-400) K/mcL BMP 08/03/19 05:18 Sodium 137 Potassium 4.1 Chloride 102 Carbon Dioxide 25 BUN 17 Creatinine 1.16 Glucose 152 H Calcium 8.5 L - ABG Interpretation ABG results: PT/INR, D-dimer PT 12.4 Seconds (9.4-12.1) H 08/02/19 02:19 - Impressions Impressions Tibia/Fibula X-Ray 08/03/19 00:00 IMPRESSION: Intraprocedural fluoroscopic spot images as above. See separate procedure report for more information. D/ / Jeffy Ortiz / Jeffy Ortiz Interpreting Provider: Jeffy Ortiz Consult Discharge Plan - Plan Referrals: NONE,PCP [Primary Care Provider] - - Attending Attestation I saw evaluated and examined this patient and reviewed objective data including labs and my medical decision-making was [facility]. I agree with the documented findings, disposition and treatment plan as described except to any changes set forth below. We independently had [id number] contact with the patient. Acute left tib-fib fracture: Status post open reduction with intramedullary nail ing. Postop day 0. Continue PTOT. Await recommendations. Pain control. Mild fever: Most likely due to atelectasis. We will obtain chest x-ray and urinalysis to rule out any infection. Continue incentive spirometry. Acute kidney injury: Resolved. Prediabetes: Diabetic diet. Essential hypertension: Blood pressure elevated this morning. Most likely due to pain. Continue atenolol. We will monitor blood pressure and adjust antihypertensive regimen. <Bruce Nunez - Last Filed: 08/03/19 15:52> Hospitalist Progress Note - Encounter Date of Encounter: 08/03/19 Time of Encounter: 08:45 - Subjective Interval History: Patient is a 59M intitially presenting with L Tibia/Fibula shaft fracture. Patient is post op day 0, had surgical fixation this morning without complication. Pain has been controlled with medication.Seen and examined at bedside, alert and oriented in no acute distress No bowel movement but able to pass flatus. Denies any Fever, chills, lightheadedness, SOB, cough, diarrhea, dysuria, or painful extremities. - Exam Vitals: Temp Pulse Resp BP Pulse Ox 98.0 F 80 16 163/75 92 08/03/19 06:11 08/03/19 06:11 08/03/19 06:11 08/03/19 06:11 08/03/19 06:11 Exam: Gen: AOx3 Eyes: LEELA, EOMI with no conjunctivitis Throat: Moist mucous membranes, with no pharyngeal erythema or tonsilar exudate present CV: RRR with no murmur Resp: CTA in all lung kaur with no wheezes or rhales GI: Abdomen soft, non-tender with no masses or organomegally palpated : Fish catheter in place Neuro: CN II- XII intact with no focal deficits. Unable to assess strength in L LE due to splinting. R LE strength 4/5. UE strength 4/5 ankit. Ext: L LE wrapped in kimberli bandage from bottom of foot with toes exposed to mid thigh. Sensation intact in Ankit LE with capillary refill intact in ankit LE. L ankle unable to visualize for swelling due to bandage. No edema in R LE. Derm: No evidence of rash, pallor or cyanosis in the extremities. - Assessment and Plan (1) Tibia/fibula fracture, shaft Current Visit: Yes Status: Acute Assessment and Plan: - X ray of the left leg shows comminuted tibial and fibular mid diaphyseal fractures with punctuate foreign body noted near the tibia just superior to the fracture site. Occurred on 08/01. -Hgb 14.5 stable 14.8 yesterday -Cardiac risk index score 1/6 with 6% 30 day risk , [place], or cardiac arrest - Open reduction with intramedullary nailing left tibia fracture by Dr. Abbott today without complication Plan: - Manage pain with 10 mg oxycodone PO Q6, Percocet 1 tab Q6, Diluadid 1mg IVP - Cont neurovascular checks - PT/OT evaluation (2) Leukocytosis Current Visit: Yes Status: Acute Assessment and Plan: -Patient presented with WBC count of 9.7 on 08/02 which is up to 11.2 today - Likely reactive 2/2 fracture vs post op atelectasis, however unable to rule out infectious etiologies -Chest x ray from 08/01 shows no acute process - Had Fish catheter placed on 08/02 plan: - cont to monitor WBC count and vitals - Continue cefazoline 2g IV -obtain 2 view chest x ray and urine analysis (3) Abnormal EKG Current Visit: Yes Status: Acute Assessment and Plan: -EKG shows sinus bradycardia with ST deviation and moderate T-wave abnormality. -Patient had 6-way cardiac bypass surgery at the age of 40. - Also has PmhX Hypertension, Hypercholesteremia, History of Smoking 1 PPD, Family History of CAD -Patient asymptomatic denying chest pain, light headedness, SOB, LE edema. -HR has been 53-66 throughout hospital stay on atenolol -Eho report 08/01 showed LVEF 55-60%, no wall motion abnormalities with right ventricle appearing grossly normal, LA normal size, RA normal size, trace mitral regurgitation. No evidence of Pulm HTN -Cardiac risk index score 12/05 with 6% 30 day risk , [place], or cardiac arrest plan: -Cont to monitor vitals (4) TODD (acute kidney injury) Current Visit: Yes Status: Acute Assessment and Plan: -GFR of 56 and creatinine 1.32 08/01. -Today eGFR >60 and creatinine 1.16 -Catheter Placed 08/02 due to difficulty urinating -Urine output 1175 mL over past 24 hours -0.9 IV fluids ordered at 75 mls/hr plan: -Will continue to monitor kidney function and urine output -Will avoid nephrotoxins and renally dose medications (5) HTN (hypertension) Current Visit: Yes Status: Chronic Assessment and Plan: - Hx of chronic HTN. plan: -Monitor pt. vital signs -Continue patient's atenolol 25 mg PO (6) HLD (hyperlipidemia) Current Visit: Yes Status: Chronic Assessment and Plan: - Lipid panel 08/01 triglycerides 81, cholesterol 153, LDL cholesterol 99, VLDL cholesterol 16, HDL cholesterol 38 plan: -cont simvastatin - Time Spent with Patient Total time spent is greater than 50% in coordination of care (as documented) at patient's floor/unit and/or counseling patient: Internal Medicine: Result - Labs CBC & Chem 7: 08/03/19 05:18 08/03/19 05:18 Labs: Short CBC 08/03/19 Range/Units 05:18 WBC 11.2 H (4.3-11.1) K/mcL Hgb 14.5 (12.9-16.9) g/dL Hct 42.9 (37.5-50.1) % Plt Count 145 (140-400) K/mcL BMP 08/03/19 05:18 Sodium 137 Potassium 4.1 Chloride 102 Carbon Dioxide 25 BUN 17 Creatinine 1.16 Glucose 152 H Calcium 8.5 L - ABG Interpretation ABG results: PT/INR, D-dimer PT 12.4 Seconds (9.4-12.1) H 08/02/19 02:19 - Impressions Impressions Echocardiogram 08/02/19 06:30 Impressions: LVEF 55-60%. Normal LV chamber size, wall thickness and function. Normal left ventricular diastolic function. The right ventricle was not well visualized but appeared grossly normal in size and function Mild tricuspid regurgitation. No evidence of pulmonary hypertension. Left Ventricular Wall Motion: Rest Echo Findings All wall segments showed normal motion. Findings: Study Quality * Technically adequate exam. ECG Findings * Sinus bradycardia. Left Ventricle * LVEF 55-60%. * Normal LV chamber size, wall thickness and function. * Normal left ventricular diastolic function. Right Ventricle * The right ventricle was not well visualized but appeared grossly normal in size and function Left Atrium * Normal left atrial size. Right Atrium * Normal right atrial size. Interatrial Septum * No evidence of PFO by color Doppler. Aortic Valve * Trileaflet aortic valve. * No aortic regurgitation. * No aortic stenosis. * Normal aortic valve structure. Mitral Valve * Trace mitral regurgitation. * No mitral stenosis. * Normal mitral valve structure. Tricuspid Valve * Normal tricuspid valve structure. * No evidence of pulmonary hypertension. * No tricuspid stenosis. * Mild tricuspid regurgitation. Pulmonic Valve * No pulmonic regurgitation. Aorta * Normally sized aortic root. Pericardium * The pericardium appears normal. IVC * The IVC is not well evaluated. Pulmonary Artery * Normal visualized portions of the main pulmonary artery. Tibia/Fibula X-Ray 08/03/19 00:00 IMPRESSION: Intraprocedural fluoroscopic spot images as above. See separate procedure report for more information. D/ / Jeffy Ortiz / Jeffy Ortiz Interpreting Provider: Jeffy Ortiz <Wei Rebolledo - Last Filed: 08/03/19 12:49> (1) Tibia/fibula fracture, shaft Qualifiers: Encounter type: initial encounter Fracture type: closed Laterality: left Qualified Code(s): S82.202A - Unspecified fracture of shaft of left tibia, initial encounter for closed fracture; S82.402A - Unspecified fracture of shaft of left fibula, initial encounter for closed fracture (2) Leukocytosis Qualifiers: Leukocytosis type: other Qualified Code(s): D72.828 - Other elevated white blood cell count (4) HTN (hypertension) Qualifiers: Hypertension type: essential hypertension Qualified Code(s): I10 - Essential (primary) hypertension (5) HLD (hyperlipidemia) Qualifiers: Hyperlipidemia type: pure hypercholesterolemia Qualified Code(s): E78.00 - Pure hypercholesterolemia, unspecified; E78.0 - Pure hypercholesterolemia (6) Depression Qualifiers: Depression Type: other depression Qualified Code(s): F32.89 - Other specified depressive episodes <MayraBruce R - Last Filed: 08/03/19 15:52> (1) Tibia/fibula fracture, shaft Qualifiers: Encounter type: initial encounter Fracture type: closed Laterality: left Qualified Code(s): S82.202A - Unspecified fracture of shaft of left tibia, initial encounter for closed fracture; S82.402A - Unspecified fracture of shaft of left fibula, initial encounter for closed fracture (2) Leukocytosis Qualifiers: Leukocytosis type: other Qualified Code(s): D72.828 - Other elevated white blood cell count (5) HTN (hypertension) Qualifiers: Hypertension type: essential hypertension Qualified Code(s): I10 - Essential (primary) hypertension (6) HLD (hyperlipidemia) Qualifiers: Hyperlipidemia type: pure hypercholesterolemia Qualified Code(s): E78.00 - Pure hypercholesterolemia, unspecified; E78.0 - Pure hypercholesterolemia
[2019-08-03] MEDS: Aspirin Enteric Coated 81 MG Tablet PO SCH (08:57)
[2019-08-03] MEDS ORDERED: NON-FORMULARY MEDICATION 1 EACH EACH (Omega-3 Fatty Acids [Fish Oil] 300 MG) PO SCH (09:00)
[2019-08-03] MEDS: *HR* OxyCODONE Immed Rel 5 MG TABLET PO PRN (11:39)
[2019-08-03 18:07] LABS: Bilirubin,Urine Negative (Negative); Blood,Urine Negative (Negative); Clarity,Urine Clear (Clear); Color,Urine Yellow (Yellow); Glucose,Urine (UA) Normal (Normal); Ketones,Urine Negative (Negative); Leukocyte Esterase,Urine Trace (Negative); Nitrite,Urine Negative (Negative); PH,Urine 6.5 pH Units (5.0-8.0); Protein,Urine Negative (Neg-Trace); Specific Gravity,Urine 1.013 (1.010-1.025); Urobilinogen,Urine Normal (Normal)
[2019-08-03] MEDS: *HR* Enoxaparin 30 MG/0.3 ML SYRINGE SQ SCH (18:27)
[2019-08-03 18:29] LABS: Bacteria,Urine None Seen per hpf (None-Few); Hyaline Casts,Urine None Seen per lpf (None-Few); RBC,Urine 0-3 per hpf (0-3); Squamous Epithelial Cell,Urine None Seen per lpf (None-Few); WBC,Urine 0-3 per hpf (0-3)
--- NOTE | 2019-08-03 20:16 | Orthopedics Progress Note ---
Date of Encounter: 08/03/19 Time of Encounter: 20:13 Subjective Principal diagnosis: Left tibia fracture Interval history: 08/03/2019. Patient is postop day #1 (approximately 18 hours) IM nailing left tibia. Patient is quite comfortable at this time. He is having soreness in the thigh. Vital signs are stable. Patient is afebrile. Dressings are clean dry and intact. Distal neurosensory exam is intact. Hemoglobin is stable at 14.5. White blood cell count is minimally elevated at 11.2. Impression: POD #1 IM nailing segmental fracture left tibia Recommendation: Orthopedic status is stable. Patient needs to maintain touchdown weightbearing only but can actively move the knee and ankle. As long as the dressings are clean and dry he will not require any specific care as either a antibiotic dressing on. We will need follow-up with me in about 2 weeks after discharge. Suspect may be ready to go home tomorrow. Objective Vital signs: Vital Signs Temp Pulse Resp BP Pulse Ox 08/03/19 18:53 99.3 F 72 17 157/79 96 08/03/19 15:45 98.2 F 80 16 157/82 94 08/03/19 11:40 98.2 F 71 18 150/78 94 08/03/19 09:00 92 08/03/19 06:11 98.0 F 80 16 163/75 92 08/03/19 05:06 97.6 F 82 16 159/80 83 08/03/19 04:06 98.5 F 68 16 162/73 100 08/03/19 03:35 98.2 F 76 16 153/75 99 08/03/19 03:05 98 F 69 16 143/71 100 08/03/19 02:45 99.1 F 69 16 125/69 100 08/03/19 02:35 100.3 F H 66 14 122/68 99 08/03/19 02:25 70 16 126/66 93 08/03/19 02:15 64 16 113/62 95 08/03/19 02:05 99.1 F 70 20 119/61 91 08/02/19 22:55 99.6 F 70 18 146/81 98 08/02/19 22:35 99.8 F H 68 16 154/83 94 Intake and Output 08/03/19 08/03/19 08/03/19 07:59 15:59 23:59 Intake Total 460 / 1060 600 / 1060 Output Total 325 / 325 0 / 325 Balance -325 / 735 460 / 735 600 / 735 Intake: IV Fluids 100 / 700 600 / 700 0.9 % Sodium Chloride 1,000 ML 500 / 500 @ 75 mls/hr IVC .[id number] DAVID Rx #:[id number] Ancef 2,000 MG In 0.9 % Sodium 100 / 200 100 / 200 Chloride 100 ML @ 200 mls/hr IVPB Q8HR DAVID Rx#:[id number] Oral 360 / 360 Output: Urine 0 / 0 Estimated Blood Loss 25 / 25 Catheter 300 / 300 Other: Meal Lunch Percent of Meal Consumed 75% # Voids 1 1 Weight 86.2 kg Blood Glucose* 197 137 Patient Weight 08/03/19 23:59 Weight 86.2 kg Incision: clean and dry - Labs CBC & BMP: 08/03/19 05:18 08/03/19 05:18 Labs: Abnormal lab results WBC 11.2 K/mcL (4.3-11.1) H 08/03/19 05:18 Neutrophils # 10.6 K/mcL (1.6-8.9) H 08/01/19 22:48 PT 12.4 Seconds (9.4-12.1) H 08/02/19 02:19 BUN 23 mg/dL (6-20) H 08/02/19 02:19 Creatinine 1.32 mg/dL (0.70-1.30) H 08/01/19 22:48 Est GFR (Non-Af Amer) 56 (> 60) L 08/01/19 22:48 Glucose 152 mg/dL (70-105) H 08/03/19 05:18 POC Glucose 137 mg/dL (70-99) H 08/03/19 17:13 Hemoglobin A1c 5.8 % (-5.6) H 08/01/19 22:48 Calcium 8.5 mg/dL (8.6-10.3) L 08/03/19 05:18 Serum Total Protein 6.3 g/dL (6.4-8.9) L 08/01/19 22:48 Serum Total Protein 6.3 g/dL (6.4-8.9) L 08/01/19 22:48 Globulin 2.0 g/dL (2.4-3.5) L 08/01/19 22:48 Globulin 2.0 g/dL (2.4-3.5) L 08/01/19 22:48 HDL Cholesterol 38 mg/dL (40-59) L 08/01/19 22:48 Ur Leukocyte Esterase Trace (Negative) H 08/03/19 Unknown Ur Culture Indicated? YES (NO) A 08/03/19 Unknown Consult Discharge Plan - Plan Referrals: NONE,PCP [Primary Care Provider] -
[2019-08-04 04:17] LABS: Basophils % 0.2 %; Eosinophils # 0.6 K/mcL (0.0-0.6); Eosinophils % 6.2 %; Hematocrit 39.6 % (37.5-50.1); Hemoglobin 13.6 g/dL (12.9-16.9); Immature Granulocytes % 0.5 % (0-4); Lymphocytes # 1.3 K/mcL (0.6-4.6); Lymphocytes % 13.3 %; Mean Corpuscular HGB Conc 34.3 g/dL (31.6-35.5); Mean Corpuscular Hemoglobin 30.3 pg (28.0-33.3); Mean Corpuscular Volume 88.2 fL (83.0-100.0); Mean Platelet Volume 10.7 fL (9.4-12.4); Monocytes # 1.3 K/mcL (0.0-1.3); Monocytes % 12.9 %; Neutrophils # 6.6 K/mcL (1.6-8.9); Platelet Count 134 K/mcL (140-400); Red Blood Count 4.49 M/mcL (4.19-5.50); Red Cell Distribution Width 12.5 % (11.5-14.5); Segmented Neutrophils % 66.9 %; White Blood Count 9.9 K/mcL (4.3-11.1)
[2019-08-04 04:33] LABS: BUN/Creatinine Ratio 16 (6-26); Blood Urea Nitrogen 14 mg/dL (6-20); Calcium 8.2 mg/dL (8.6-10.3); Carbon Dioxide 26 mEq/L (23-29); Chloride 103 mEq/L (98-107); Glucose 107 mg/dL (70-105); Osmolality,Calculated 283 (280-300); Potassium 3.8 mEq/L (3.5-5.1); Sodium 136 mEq/L (136-145); eGFR For African Americans > 60 (> 60); eGFR For Non-African Americans > 60 (> 60)
[2019-08-04] MEDS: Nicotine 21 MG PATCH.TD24 TD SCH (05:57)
[2019-08-04] MEDS: *HR* OxyCODONE Immed Rel 5 MG TABLET PO PRN ×2 (05:57→12:04)
[2019-08-04] MEDS: *HR* Enoxaparin 30 MG/0.3 ML SYRINGE SQ SCH (05:57)
[2019-08-04] MEDS: Aspirin Enteric Coated 81 MG Tablet PO SCH (09:33)
[2019-08-04 11:41] VITALS: BP 161/81
--- NOTE | 2019-08-04 13:14 | Discharge Summary ---
<Michelle Ivy E - Last Filed: 08/04/19 13:12> - NOTES TO OUTPATIENT PROVIDER Notes to Outpatient Provider: A1C 5.8 on admission with some fasting glucoses elevated, outpatient followup recommended with PCP. BP elevated throughout stay but chance could be from pain. Dorinda's tetnus status unknown Orders not resulted at time of discharge: Pending orders 08/03/19 Culture,Urine [RM] Routine Date of Encounter: 08/04/19 Time of Encounter: 08:45 - Discharge Diagnosis (1) Tibia/fibula fracture, shaft Priority: Primary Status: Acute Assessment and Plan: X ray of the left leg shows comminuted tibial and fibular mid diaphyseal fractures with punctuate foreign body noted near the tibia just superior to the fracture site. Occurred on 08/01. Cardiac risk index score 1/6 with 6% 30 day risk , DC, or cardiac arrest Open reduction with intramedullary nailing left tibia fracture by Dr. Abbott today without complication Qualifiers: Encounter type: initial encounter Fracture type: closed Laterality: left Qualified Code(s): S82.202A - Unspecified fracture of shaft of left tibia, initial encounter for closed fracture; S82.402A - Unspecified fracture of shaft of left fibula, initial encounter for closed fracture (2) Leukocytosis Priority: Primary Status: Acute Assessment and Plan: Patient presented with WBC count of 9.7 on 08/02 which is up to 11.2 day 2 Likely reactive due to fracture vs post op atelectasis, however unable to rule out infectious etiologies Chest x ray from 08/01 shows no acute process Qualifiers: Leukocytosis type: other Qualified Code(s): D72.828 - Other elevated white blood cell count (3) TODD (acute kidney injury) Priority: Primary Status: Acute Assessment and Plan: GFR of 56 and creatinine 1.32 08/01 on admission resolved after IV fluids given (4) HTN (hypertension) Priority: Secondary Status: Chronic Assessment and Plan: Chronic HTN, likely elevated due to pain Continue home atenolol follow outpatient Qualifiers: Hypertension type: essential hypertension Qualified Code(s): I10 - Essential (primary) hypertension (5) HLD (hyperlipidemia) Priority: Secondary Status: Chronic Assessment and Plan: known History of hyperlipidemia, continue home simvastatin Qualifiers: Hyperlipidemia type: pure hypercholesterolemia Qualified Code(s): E78.00 - Pure hypercholesterolemia, unspecified; E78.0 - Pure hypercholesterolemia (6) Abnormal EKG Priority: Primary Status: Acute Assessment and Plan: EKG shows sinus bradycardia with ST deviation and moderate T-wave abnormality. Patient had 6-way cardiac bypass surgery at the age of 40. Also has PmhX Hypertension, Hypercholesteremia, History of Smoking 1 PPD, Family History of CAD Patient asymptomatic denying chest pain, light headedness, SOB, LE edema. HR has been 53-66 throughout hospital stay on atenolol Eho report 08/01 showed LVEF 55-60%, no wall motion abnormalities with right ventricle appearing grossly normal, LA normal size, RA normal size, trace mitral regurgitation. No evidence of Pulm HTN Cardiac risk index score 12/05 with 6% 30 day risk , DC, or cardiac arrest Hospital course: Mr. Ratliff is a 59 year old male TC is a 59 y/o male that presented to the [facility] department after a tree fell on his L leg. He had immediate pain and deformity at the time of injury. PmHx of 6-way cardiac bypass surgery at the age of 40, HTN, HLD, and depression. In the ER he had x rays taken of the L leg which showed a tibia/fibula mid shaft fracture with punctuate foreign body noted near the tibia just superior to the fracture site. Labs grossly normal except for reactive leukocytosis and 1.32 creatinine. Notable UA for leukocyte esterase. Vital signs remained stable throughout stay in the ER with the exception of some bradycardia down to 53 bpm. His leg was placed in a Hare splint, and transferred to [facility] for surgical fixation by ortho. At [facility] the patient received an EKG showing KG showing sinus bradycardia with ST deviation and moderate T-wave abnormality. Consider lateral ischemia. Patient takes atenolol 25 mg PO daily. Chest X ray on 08/01 showed no acute process. Further worked up with an echocardiogram on 08/01 showed LVEF 55-60%, no wall motion abnormalities with right ventricle appearing grossly normal, LA normal size, RA normal size, trace mitral regurgitation. No evidence of Pulm HTN. Cardiac risk index was assessed prior to surgery as a / giving a 6% 30-day mortality risk of , DC or cardiac arrest. Patient underwent open reduction with intramedullary nailing left tibia fracture by Dr. Abbott without complication. After surgery was given 2 bags of cefazlin 2 g IV. Pain was controlled with 10 mg oxycodone PO Q6, Percocet 1 tab Q6, and Diluadid 1mg IVP. Hemoglobin has remained stable, 13.6 on 08/04. At the time of admission on 08/01 the patient had a leukocytosis of 14.3 likely secondary to fracture. Patient developed fevers as high as 102.5 beginning on 08/02. Repeat chest x ray on 08/03 showed no acute process. There was also suspicion for an TODD w/GFR of 55 and creatinine 1.33 on 08/01. Patient denies any history of CKD. 0.9 IV fluids ordered at 75 mls/hr. Patient had some difficulty urinating so a catheter was placed on 08/02 which has allowed the passing of urine. To assess infectious process causing fever and leukocytosis a U/A was p erformed on 08/03 showed trace leukocyte esterase with urine culture pending at the time of discharge. Continues to deny any dysuria. Upon discharge the patient is AOx3 with soreness as reported by him in the left lower extremity. L LE wrapped in dressing that is clean and intact. Distal neurosensory exam intact and DP 2/4 in ankit lower extremities. Orthopedic recommendation for maintain touchdown weight bearing only but can actively move the knee and ankle. As long as the dressings are clean and dry he will not require any specific care or antibiotic dressing on. We will need follow-up with me in about 2 weeks after discharge. Pt recommended that he participate in outpatient PT services at time of d/c if permitted by his orthopedic physician. Pt will require use of b/l axillary crutches vs walker for mobility due to weight bearing restrictions. Discharge discussed with: patient - Time Spent with Patient Total time spent providing and/or coordinating discharge services: - Discharge Medications Prescriptions: New Walker [WALKER] 1 each .ROUTE AD 90 Days #1 each Oxycodone HCl 5 mg PO Q6HR PRN 7 Days #28 tablet PRN Reason: Pain Continued Nitroglycerin [Nitrostat] 0.4 mg PO Q5MIN PRN MDD 3 doses PRN Reason: Chest Pain Atenolol [Tenormin] 25 mg PO DAILY Sertraline [Zoloft] 50 mg PO DAILY Simvastatin [Zocor] 40 mg PO DAILY [place]-3 Fatty Acids [Fish Oil] 300 mg PO DAILY Aspirin [Lo-Dose Aspirin EC] 81 mg PO DAILY Home Medications: Aspirin [Lo-Dose Aspirin EC] 81 mg PO DAILY 08/01/19 [History] Atenolol [Tenormin] 25 mg PO DAILY 08/01/19 [History] [place]-3 Fatty Acids [Fish Oil] 300 mg PO DAILY 08/01/19 [History] Sertraline [Zoloft] 50 mg PO DAILY 08/01/19 [History] Simvastatin [Zocor] 40 mg PO DAILY 08/01/19 [History] Nitroglycerin [Nitrostat] 0.4 mg PO Q5MIN PRN MDD 3 doses 08/02/19 [History] Oxycodone HCl 5 mg PO Q6HR PRN 7 Days #28 tablet 08/04/19 [Rx] Walker [WALKER] 1 each .ROUTE AD 90 Days #1 each 08/04/19 [Rx] Allergies/Adverse Reactions: Allergy/AdvReac Type Severity Reaction Status Date / Time No Known Allergies Allergy Verified 08/02/19 14:22 Date of admission: 08/01/19 23:57 Primary care physician: PCP NONE Consults: 08/01/19 22:21 Consult to Orthopedic Surgery [CONS] Routine Consulting Provider: Orthopedic and Sports Medicine Reason for Consult: Comminuted tibial and fibular mid diaphyseal fractures. Punctate foreign body noted no the tibia just superior to the fracture site. Call Completed: Yes 08/03/19 02:56 Consult to Occupational Therapy [CONS] Routine Comment: Evaluate, develop and implement POC Reason for Consult: ADL Does patient have active BEDREST order?: No Is patient medically & hemodynamically stable?: Yes Consult to Physical Therapy [CONS] Routine Comment: Evaluate, develop and implement POC Reason for Consult: Tibia Fx Does patient have active BEDREST order?: No Is patient medically & hemodynamically stable?: Yes Consult to Free Lance Artist [CONS] Routine Reason for SW Consult: post -op hip fracture Discharging clinician: Wei Rebolledo Anticipated date of discharge: 08/04/19 - Constitutional Vitals: Temp Pulse Resp BP Pulse Ox 98.7 F 84 18 161/81 98 08/04/19 11:40 08/04/19 11:40 08/04/19 11:40 08/04/19 11:40 08/04/19 11:40 General appearance: Present: cooperative, mild distress, A&O X 3, pleasant, answers questions appropriately Exam: General: AAO 3, no acute distress, answers questions appropriately Head: normocephalic, atraumatic Eyes: LEELA, no icterus Cardio: RRR, no murmurs, rubs, or gallops Respiratory: CTAB, no wheezing, rhonchi, rales Abd: normal bowel sounds, no guarding or rigidity Extremities: no peda edema, pulses equal bilaterally, warm left lower extremity wrapped in [place] bandage, slightly tender to light palpation Skin: warm, dry, intact - Patient Status Disposition: Home, Self-Care Functional capacity at discharge: uses cane/walker Overall status at discharge: patient is progressing back to baseline - Discharge Instructions Follow Up With: NONE,PCP [Primary Care Provider] - - Diet and Activity Activity: as per physical therapy Diet: advance to your usual diet <Wei Rebolledo - Last Filed: 08/04/19 14:03> Orders not resulted at time of discharge: Pending orders 08/03/19 Culture,Urine [RM] Routine Date of Encounter: 08/04/19 Time of Encounter: 08:50 - Discharge Diagnosis (1) Tibia/fibula fracture, shaft Status: Acute Qualifiers: Encounter type: initial encounter Fracture type: closed Laterality: left Qualified Code(s): S82.202A - Unspecified fracture of shaft of left tibia, initial encounter for closed fracture; S82.402A - Unspecified fracture of shaft of left fibula, initial encounter for closed fracture (2) Leukocytosis Status: Acute Qualifiers: Leukocytosis type: other Qualified Code(s): D72.828 - Other elevated white blood cell count (3) TODD (acute kidney injury) Status: Acute (4) HTN (hypertension) Status: Chronic Qualifiers: Hypertension type: essential hypertension Qualified Code(s): I10 - Essential (primary) hypertension (5) HLD (hyperlipidemia) Status: Chronic Qualifiers: Hyperlipidemia type: pure hypercholesterolemia Qualified Code(s): E78.00 - Pure hypercholesterolemia, unspecified; E78.0 - Pure hypercholesterolemia (6) Depression Status: Chronic Qualifiers: Depression Type: other depression Qualified Code(s): F32.89 - Other specified depressive episodes (7) DVT prophylaxis Status: Acute (8) Tobacco abuse Status: Chronic Hospital course: Mr. Ratliff is a 59 year old male - Time Spent with Patient Total time spent providing and/or coordinating discharge services: Date of admission: 08/01/19 23:57 Primary care physician: PCP NONE Consults: 08/01/19 22:21 Consult to Orthopedic Surgery [CONS] Routine Consulting Provider: Orthopedic and Sports Medicine Reason for Consult: Comminuted tibial and fibular mid diaphyseal fractures. Punctate foreign body noted no the tibia just superior to the fracture site. Call Completed: Yes 08/03/19 02:56 Consult to Occupational Therapy [CONS] Routine Comment: Evaluate, develop and implement POC Reason for Consult: ADL Does patient have active BEDREST order?: No Is patient medically & hemodynamically stable?: Yes Consult to Physical Therapy [CONS] Routine Comment: Evaluate, develop and implement POC Reason for Consult: Tibia Fx Does patient have active BEDREST order?: No Is patient medically & hemodynamically stable?: Yes Consult to [employer] Artist [CONS] Routine Reason for SW Consult: post -op hip fracture - Constitutional Vitals: Temp Pulse Resp BP Pulse Ox 98.7 F 84 18 161/81 98 08/04/19 11:40 08/04/19 11:40 08/04/19 11:40 08/04/19 11:40 08/04/19 11:40 - Attending Attestation I saw evaluated and examined this patient and reviewed objective data including labs and my medical decision-making was reviewed with the Resident Physician, Michelle Ivy. I agree with the documented findings, disposition and discharge plan as described except to any changes set forth below. We independently had [id number] contact with the patient. Patient was hospitalized here after a traumatic injury resulting in left tib-fib fracture. He was evaluated by orthopedics and recommended surgery. Patient underwent open reduction and intramedullary fixation of left tibia and fibula on 08/03. Since then his been doing well. He is clinically stable to be discharged home today. He will receive physical therapy at home and will follow up with orthopedics in 2 weeks. Time spent on discharge: 5 minutes
--- NOTE | 2019-08-04 13:38 | Physician Discharge Referral ---
Home Health/Hosp Referral Info Transfer to: Home Health - Diagnosis (1) Tibia/fibula fracture, shaft Priority: Primary Status: Acute (2) Leukocytosis Priority: Primary Status: Acute (3) TODD (acute kidney injury) Priority: Primary Status: Acute (4) HTN (hypertension) Priority: Secondary Status: Chronic (5) HLD (hyperlipidemia) Priority: Secondary Status: Chronic (6) Abnormal EKG Priority: Primary Status: Acute - Respiratory Orders None Smoking Cessation: Smoking cessation has been advised. For more information, call the [place] Tobacco Quit Line at 4-060-FPOB-NOW. - Diet/Nutrition Diet/Nutrition Orders: Regular - Services Needed Following services are medically necessary services: Home Health Aide, Physical Therapy - Transfer Medications Prescriptions: Oxycodone HCl 5 mg PO Q6HR PRN 7 Days #28 tablet PRN Reason: Pain Walker [WALKER] 1 each .ROUTE AD 90 Days #1 each Home Medications: Aspirin [Lo-Dose Aspirin EC] 81 mg PO DAILY 08/01/19 [History] Atenolol [Tenormin] 25 mg PO DAILY 08/01/19 [History] [place]-3 Fatty Acids [Fish Oil] 300 mg PO DAILY 08/01/19 [History] Sertraline [Zoloft] 50 mg PO DAILY 08/01/19 [History] Simvastatin [Zocor] 40 mg PO DAILY 08/01/19 [History] Nitroglycerin [Nitrostat] 0.4 mg PO Q5MIN PRN MDD 3 doses 08/02/19 [History] Oxycodone HCl 5 mg PO Q6HR PRN 7 Days #28 tablet 08/04/19 [Rx] Walker [WALKER] 1 each .ROUTE AD 90 Days #1 each 08/04/19 [Rx] Allergies/Adverse Reactions: Allergy/AdvReac Type Severity Reaction Status Date / Time No Known Allergies Allergy Verified 08/02/19 14:22 Certification: Further, I certify that my clinical findings support that this patient is homebound (i.e. absences from home require considerable and taxing effort and are for medical reasons or spiritism services or infrequently or short duration when for other reasons) because: Homebound Reason: Patient requires assistance of a person or device to safely leave home Attestation: My signature below is to certify that this patient is under my care and that I, or nurse practitioner, or a physician's wet process assistant head miller working with me, has a [id number] encounter with this patient.
--- NOTE | 2019-08-22 09:09 | Electrocardiograph Report ---
[address] [place] [address] Test Date: 2019-08-01 Pat Name: Ahsan Ratliff Department: 114 Room: [facility] Gender: M Classroom Paraprofessional: : [id number] Requested By: Clint Borges Order Number: [id number] Reading MD: Sidney Noriega Measurements Intervals [place] Rate: 51 P: 40 TN: 180 QRS: 48 QRSD: 95 T: 144 QT: 442 QTc: 420 Interpretive Statements SINUS BRADYCARDIA ST DEVIATION AND MODERATE T-WAVE ABNORMALITY, CONSIDER LATERAL ISCHEMIA INTERPRETATION BASED ON A DEFAULT AGE OF 40 YEARS Electronically Signed On 08-22-2019 8:56:33 EDT by Sidney Noriega
== END 2019-08-04 15:30 | disposition home or self-care (01) | DRG 493 ==
LOC: 3NENU → SUATTDRO 23:57
PROVIDERS: ADMIT Internal Medicine; ATTEND Student in an Organized Health Care Education/Training Program